=== PATIENT | female | born 2000 | race Caucasian/White ===

== ENCOUNTER 2020-08-28 13:57 | Emergency (ER) | payer OTHER ==
[~2020-08-28] VITALS: Ht 162.6 cm; Wt 56.7 kg
[2020-08-28] MEDS ORDERED: INTESTINEX680 M1 PO (20:59)
[2020-08-28] MEDS ORDERED: MACRODANTIN100 M1 PO (20:59)
[2020-08-28] MEDS ORDERED: AZO STANDARD95 MG (21:05)
== END 2020-08-28 21:30 | disposition home or self-care (01) ==
LOC: ER 13:57
DX: N39.0 Urinary tract infection, site not specified (principal); Z03.818 Encounter for observation for suspected exposure to other biological agents ruled out

== ENCOUNTER 2021-01-01 11:22 | Outpatient (CLI) | payer OTHER ==
[~2021-01-01 11:22] MED LIST: AZO STANDARD95 MG; INTESTINEX680 M1 PO; MACRODANTIN100 M1 PO
== END 2021-01-01 11:28 | disposition home or self-care (01) ==
LOC: RAD 11:22
DX: R07.89 Other chest pain (principal); R63.4 Abnormal weight loss

== ENCOUNTER 2023-02-20 12:29 | Outpatient (CLI) | payer OTHER | END 2023-02-20 13:25 | disposition home or self-care (01) | LOC: PRENATAL 12:29 | PROVIDERS: ATTEND Obstetrics & Gynecology Maternal & Fetal Medicine | DX: O35.3XX0 Maternal care for (suspected) damage to fetus from viral disease in mother, not applicable or unspecified (principal); O26.859 Spotting complicating pregnancy, unspecified trimester; O26.879 Cervical shortening, unspecified trimester; O44.00 Complete placenta previa NOS or without hemorrhage, unspecified trimester; Z3A.24 24 weeks gestation of pregnancy ==